=== PATIENT | female | born 1985 | race Caucasian/White ===

== ENCOUNTER 2019-12-23 13:18 | Emergency (ER) | payer MEDICAID ==
[~2019-12-23] VITALS: Ht 170.2 cm; Wt 54.4 kg
[2019-12-23 13:28] VITALS: BP 108/63
== END 2019-12-23 13:42 | disposition home or self-care (01) ==
LOC: ER 13:29
DX: J03.90 Acute tonsillitis, unspecified (principal)
CPT/HCPCS: 86403-TC; 87070-TC